=== PATIENT | female | born 1960 | race Caucasian/White ===

== ENCOUNTER 2020-07-05 10:46 | Emergency (ER) | payer MEDICAID ==
[~2020-07-05] VITALS: Ht 175.3 cm; Wt 72.6 kg
[2020-07-05 11:09] VITALS: Ht 175.3 cm; Wt 72.6 kg
[2020-07-05 13:37] VITALS: BP 122/67
== END 2020-07-05 13:37 | disposition home or self-care (01) ==
LOC: ED 10:46 → EDBD 10:46 → ED 13:37
DX: S22.009A Unspecified fracture of unspecified thoracic vertebra, initial encounter for closed fracture (principal); S63.272A Dislocation of unspecified interphalangeal joint of right middle finger, initial encounter; W17.89XA Other fall from one level to another, initial encounter; Y93.89 Activity, other specified; Y92.89 Other specified places as the place of occurrence of the external cause; Y99.8 Other external cause status
CPT/HCPCS: 90715; J1885

== ENCOUNTER 2020-07-18 18:05 | Emergency (ER) | payer MEDICAID ==
[~2020-07-18] VITALS: Ht 134.6 cm; Wt 74.4 kg
[2020-07-18 18:20] VITALS: Ht 134.6 cm; Wt 74.4 kg
[2020-07-18] MEDS ORDERED: IBU600 M2 PO (18:46)
[2020-07-18] MEDS ORDERED: REMERON SOLTAB45 MG PO (18:46)
[2020-07-18] MEDS ORDERED: SEROQUEL50 M1 PO (18:46)
[2020-07-18 19:20] VITALS: BP 129/92
== END 2020-07-18 19:20 | disposition home or self-care (01) ==
LOC: ED 18:05
DX: F32.9 Major depressive disorder, single episode, unspecified (principal); Z76.0 Encounter for issue of repeat prescription